=== PATIENT | female | born 1985 | race Caucasian/White ===

== ENCOUNTER 2016-10-07 18:21 | Emergency (ER) | payer MEDICAID ==
[2016-10-07 18:48] VITALS: RESP 16
[2016-10-07 19:16] LABS: RBC URINE 1 /hpf (0-3); URINE BACTERIA RARE (<OCC); URINE BILIRUBIN NEGATIVE (NEGATIVE); URINE BLOOD NEGATIVE (NEGATIVE); URINE COLOR Straw (YELLOW); URINE GLUCOSE (UA) NORMAL (Normal); URINE KETONE 1+ mg/dL (NEGATIVE); URINE LEUKOCYTE ESTERASE NEG Leu/uL (Negative); URINE PROTEIN NEGATIVE (NEGATIVE); URINE UROBILINOGEN NORMAL mg/dL (0.2-1.0); WBC URINE 1 /hpf (0-5)
[2016-10-07] MEDS ORDERED: Sodium Chloride 0.9% 1,000 ML IV ONE (19:24)
--- NOTE | 2016-10-07 19:54 | C.PDOC ---
History Of Present Illness 31 year old patient presents to the ED complaining of right flank pain radiating to her right abdomen since this morning. Patient also complains nausea and 2 episodes of vomiting. The pain is constant. She denies fever, dysuria, hematuria, diarrhea, vaginal bleeding or discharge. Time Seen by Provider: 10/07/16 19:05 Chief Complaint (Nursing): Back Pain History Per: Patient History/Exam Limitations: no limitations Onset/Duration Of Symptoms: Hrs (this morning) Current Symptoms Are (Timing): Still Present Quality Of Discomfort: "Pain" Severity: Mild Pain Scale Rating Of: 3 Previous Symptoms: None Associated Symptoms: None Exacerbating Factor(s): Nothing Recent travel outside of the [place]: No Past Medical History Reviewed: Historical Data, Nursing Documentation, Vital Signs Vital Signs: Last Vital Signs Temp 97.8 F 10/07/16 18:45 Pulse 91 H 10/07/16 18:45 Resp 16 10/07/16 18:45 BP 124/76 10/07/16 18:45 Pulse Ox 96 10/07/16 20:56 Family History: States: Unknown Family Hx - Social History Hx Alcohol Use: Yes Hx Substance Use: No - Immunization History Hx Influenza Vaccination: Yes Review Of Systems Except As Marked, All Systems Reviewed And Found Negative. Constitutional: Negative for: Fever Gastrointestinal: Positive for: Nausea, Vomiting, Abdominal Pain (right). Negative for: Diarrhea Genitourinary: Negative for: Dysuria, Hematuria, Vaginal Discharge, Vaginal Bleeding Musculoskeletal: Positive for: Other (right flank pain) Physical Exam - Physical Exam Appears: Non-toxic, Other (mild pain) Skin: Warm, Dry Head: Atraumatic, Normacephalic Neck: Normal ROM, Supple Chest: Symmetrical Cardiovascular: Rhythm Regular Respiratory: Normal Breath Sounds, No Rales, No Rhonchi, No Wheezing Gastrointestinal/Abdominal: Soft, No Tenderness Back: CVA Tenderness (right), No Vertebral Tenderness Extremity: Normal ROM, No Pedal Edema, No Swelling Neurological/Psych: Oriented x3 Gait: Steady ED Course And Treatment - Laboratory Results Result Diagrams: 10/07/16 19:56 10/07/16 19:56 O2 Sat by Pulse Oximetry: 96 (room air) Pulse Ox Interpretation: Normal - CT Scan/US CT ABD/PELVIS Other Rad Studies (CT/US): Read By Radiologist, Radiology Report Reviewed CT/US Interpretation: Accession No. : [id number]. Patient Name / ID : MARGIE GUEVARA / [id number]. Exam Date : 10/07/2016 20:11:43 ( Approved ). Study Comment : Sex / Age : F / 31Y. Creator : ANITA RHODES. 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 Approver2 : Report Date : 10/07/2016 20:42:00. My Comment : . [facility] Division of Radiology. [address] [place] [address]. Tel. no. . . . Patient Name: ISMAEL HANSON . Pt. Address: [address] [place] [address]. Rec #: [id number]. [place] [address]: Cesia Toscano DO Pt Order Location: [facility] : 1985 Female Age: 31 Order #: [id number]. Reason for exam: RIGHT FLANK PAIN R/O KIDNEY STONE. . . . . . CT Scan. . . ABD PELVIS W/O PO OR IV CONT Exam Date: 10/07/16. . This imaging exam was performed at [facility]. EXAM: CT Abdomen and Pelvis Without Intravenous Contrast. . CLINICAL HISTORY: 31 years old, female; Pain; Abdominal pain; Flank; Right lower quadrant. (rlq); Additional info: Right flank pain R/O kidney stone. . TECHNIQUE: Axial computed tomography images of the abdomen and pelvis without. intravenous contrast. This CT exam was performed using one or more of the. following dose reduction techniques: automated exposure control, adjustment of. the mA and/or kV according to patient size, and/or use of iterative. reconstruction technique. Coronal and sagittal reformatted images were created and reviewed. . EXAM DATE/TIME: Exam ordered 10/07/2016 7:43 PM. . COMPARISON : No relevant prior studies available. . FINDINGS: Lower thorax: A pleural- based him to millimeter nodule is noted in the. lingula. . ABDOMEN: Liver: There is a diffuse low-density within the liver indicating hepatic. steatosis. Gallbladder and bile ducts: Unremarkable. No calcified stones. No ductal. dilation. Pancreas: Unremarkable. No ductal dilation. Spleen: Unremarkable. No splenomegaly. Adrenals: Unremarkable. No mass. Kidneys and ureters: There is moderate right-sided hydronephrosis with. hydroureter. A 2 mm stone is noted within the right ureterovesicular junction. Right ovary measures 2.9 x 3.2 x 4.6 cm. There is a stranding of the. perinephric fat. Stomach and bowel: Unremarkable. No obstruction. No mucosal thickening. Appendix: No findings to suggest acute appendicitis. . PELVIS: Bladder: Unremarkable. No stones. Reproductive: Unremarkable as visualized. . ABDOMEN and PELVIS: Intraperitoneal space: Unremarkable. No free air. No significant fluid. collection. Bones/joints: No acute fracture. No dislocation. Soft tissues: Unremarkable. Vasculature: Unremarkable. No abdominal aortic aneurysm. Lymph nodes: Unremarkable. No enlarged lymph nodes. . IMPRESSION: 1. Right-sided hydronephrosis and hydroureter secondary to obstructing stone. within the right ureterovesicular junction. . 2. Nodule within the lingula. For low-risk patients, no follow-up is. necessary. For high-risk patients (smoking history or other known risk. factors) recommend CT at 12 months and if unchanged, no further follow-up. . 3. Hepatic steatosis. Images were attached to this report and are available at [email or web address] . Dictated By: Anita Rhodes MD. Dictated Date/Time: 10/07/162041. Signed By: Anita Rhodes MD. Date Signed: 10/18. Transcribed By: [facility]. Transcribe Date/Time: 10/07/162041. WENDY/RASHAD Progress Note: Abdomen/pelvis CT was taken. Blood work was sent. IV fluids and Toradol were given. Disposition Counseled Patient/Family Regarding: Studies Performed, Diagnosis, Need For Followup, Rx Given - Disposition Referrals: Parveen Kenney MD [Staff Provider] - Arya Pascual MD [Medical Doctor] - Disposition: HOME/ ROUTINE Disposition Time: 22:00 Condition: STABLE Additional Instructions: FOLLOW UP WITH UROLOGY WITHIN 1 WEEK USE MEDICATIONS DIRECTED DRINK PLENTY OF FLUIDS RETURN TO ER IF SYMPTOMS WORSEN Prescriptions: Hydrocodone/Acetaminophen [Hydrocodon-Acetaminophen 5-325] 1 each PO Q6 PRN #15 tablet PRN Reason: Pain, Moderate (4-7) Tamsulosin [Flomax] 0.4 mg PO DAILY #5 cap Instructions: Kidney Stones (ED), Renal Colic (ED) Print Language: BANGLADESHI - POA Present On Arrival: None - Clinical Impression Clinical Impression: Kidney stone on right side, Renal colic on right side - Scribe Statement The provider has reviewed the documentation as recorded by the Scribe Viky Hobbs Provider Attestation: All medical record entries made by the Scribe were at my direction and personally dictated by me. I have reviewed the chart and agree that the record accurately reflects my personal performance of the history, physical exam, medical decision making, and the department course for this patient. I have also personally directed, reviewed, and agree with the discharge instructions and disposition.
[2016-10-07 19:59] LABS: BASO # 0.1 K/uL (0.0-0.2); BASO % 0.5 % (0.0-2.0); EOS # 0.1 K/uL (0.0-0.7); EOS % 0.6 % (0.0-4.0); HEMATOCRIT 37.5 % (34.0-47.0); LYMPH # 1.5 K/uL (1.0-4.3); LYMPH % 9.6 % (20.0-40.0); MEAN CELL VOLUME 83.3 fL (81.0-99.0); MEAN CORPUSCULAR HEMOGLOBIN 27.7 pg (27.0-31.0); MEAN CORPUSCULAR HGB CONC 33.2 g/dL (33.0-37.0); MEAN PLATELET VOLUME 8.6 fL (7.2-11.7); MONO # 0.6 K/uL (0.0-0.8); PLATELET COUNT 334 K/uL (130-400); WHITE BLOOD COUNT 15.5 K/uL (4.8-10.8)
[2016-10-07 20:08] LABS: CHLORIDE 100 mmol/L (98-107); SODIUM 135 mmol/L (132-148)
[2016-10-07 20:10] LABS: ALB/GLOB RATIO 1.3 (1.0-2.1); AST/SGOT 47 U/L (14-36); BILIRUBIN,TOTAL 1.1 mg/dL (0.2-1.3); CARBON DIOXIDE 24 mmol/L (22-30); GFR AFRICAN-AMERICAN > 60; TOTAL PROTEIN 7.6 g/dL (6.3-8.3)
[2016-10-07 20:11] LABS: ALKALINE PHOSPHATASE 42 U/L (38-126); ALT/SGPT 46 U/L (9-52); BLOOD UREA NITROGEN 13 mg/dL (7-17); CALCIUM 8.6 mg/dl (8.6-10.4); GLUCOSE,RANDOM 103 mg/dL (65-105)
[2016-10-07] MEDS ORDERED: Sodium Chloride 0.9% 1,000 ML ONE (20:39)
--- NOTE | 2016-10-07 20:42 | CT ---
EXAM: CT Abdomen and Pelvis Without Intravenous Contrast CLINICAL HISTORY: 31 years old, female; Pain; Abdominal pain; Flank; Right lower quadrant (rlq); Additional info: Right flank pain R/O kidney stone TECHNIQUE: Axial computed tomography images of the abdomen and pelvis without intravenous contrast. This CT exam was performed using one or more of the following dose reduction techniques: automated exposure control, adjustment of the mA and/or kV according to patient size, and/or use of iterative reconstruction technique. Coronal and sagittal reformatted images were created and reviewed. EXAM DATE/TIME: Exam ordered 10/07/2016 7:43 PM COMPARISON: No relevant prior studies available. FINDINGS: Lower thorax: A pleural-based him to millimeter nodule is noted in the lingula. ABDOMEN: Liver: There is a diffuse low-density within the liver indicating hepatic steatosis. Gallbladder and bile ducts: Unremarkable. No calcified stones. No ductal dilation. Pancreas: Unremarkable. No ductal dilation. Spleen: Unremarkable. No splenomegaly. Adrenals: Unremarkable. No mass. Kidneys and ureters: There is moderate right-sided hydronephrosis with hydroureter. A 2 mm stone is noted within the right ureterovesicular junction. Right ovary measures 2.9 x 3.2 x 4.6 cm. There is a stranding of the perinephric fat. Stomach and bowel: Unremarkable. No obstruction. No mucosal thickening. Appendix: No findings to suggest acute appendicitis. PELVIS: Bladder: Unremarkable. No stones. Reproductive: Unremarkable as visualized. ABDOMEN and PELVIS: Intraperitoneal space: Unremarkable. No free air. No significant fluid collection. Bones/joints: No acute fracture. No dislocation. Soft tissues: Unremarkable. Vasculature: Unremarkable. No abdominal aortic aneurysm. Lymph nodes: Unremarkable. No enlarged lymph nodes. IMPRESSION: 1. Right-sided hydronephrosis and hydroureter secondary to obstructing stone within the right ureterovesicular junction 2. Nodule within the lingula. For low-risk patients, no follow-up is necessary. For high-risk patients (smoking history or other known risk factors) recommend CT at 12 months and if unchanged, no further follow-up. 3. Hepatic steatosis Images were attached to this report and are available at [email or web address]
[2016-10-07 20:55] LABS: NEUTROPHIL 85 % (50-75); TOTAL CELLS COUNTED 100
[2016-10-07] MEDS ORDERED: Hydrocodone/Acetaminophen 5 mg /300 mg Tab PO STA (22:02)
[2016-10-07 22:03] VITALS: BP 113/71; PULSE 87; TEMP 98.2; O2SAT 99
[2016-10-07] MEDS ORDERED: Hydrocodone/Acetaminophen 5 mg /300 mg Tab PO ONE (22:06)
== END 2016-10-07 22:11 | disposition home or self-care (01) ==
LOC: C.ER 18:21
DX: N13.2 Hydronephrosis with renal and ureteral calculous obstruction (principal)
CPT/HCPCS: 74176; 80053; 81001; 83690; 84703; 85025; 87086; 96361; 96374; 96375; 99284; J1885; J2405; J7040